=== PATIENT | female | born 1985 | race Caucasian/White ===

== ENCOUNTER 2017-11-13 10:06 | Emergency (ER) | payer OTHER ==
[~2017-11-13] VITALS: Ht 162.6 cm; Wt 64.6 kg
[2017-11-13 10:21] VITALS: BP 115/60
[2017-11-13] MEDS ORDERED: KETOROLAC 30 MG/1 ML IM ONE (11:00)
[2017-11-13] MEDS ORDERED: KETOROLAC 30 MG/1 ML ONE (11:04)
== END 2017-11-13 12:40 | disposition home or self-care (01) ==
LOC: ED 11:00
DX: S16.1XXA Strain of muscle, fascia and tendon at neck level, initial encounter (principal); V49.9XXA Car occupant (driver) (passenger) injured in unspecified traffic accident, initial encounter; Y93.89 Activity, other specified; Y92.410 Unspecified street and highway as the place of occurrence of the external cause; Y99.8 Other external cause status
CPT/HCPCS: 72125; 96372; 99284; J1885